=== PATIENT | male | born 1980 | race American Indian/Alaskan Native ===

== ENCOUNTER 2020-09-30 22:13 | Emergency (ER) | payer MEDICAID ==
[~2020-09-30] VITALS: Ht 165.1 cm; Wt 74.8 kg
--- NOTE | 2020-09-30 22:20 | NUR ---
PT BIBS WITH SPLINTER TO SOLE OF LT FOOT. ALERT AND ORIENTED X4. WITH NON LABORED SPONTANEOUS BREATHING. RATES PAIN 5/10.
--- NOTE | 2020-09-30 23:45 | NUR ---
HOT DIE PRESS FEEDER AT BEDSIDE.
[2020-10-01] MEDS ORDERED: SULF-10 PO (01:43)
[2020-10-01] MEDS ORDERED: SULFAMETH/TRIMETH 800/160 MG 1 UDTAB TABLET ONE (01:54)
--- NOTE | 2020-10-01 01:56 | NUR ---
Patient discharged to home in stable condition. Written and verbal after care instructions given. Patient verbalizes understanding of instruction.
[2020-10-01 01:57] VITALS: BP 124/87
[2020-10-01] MEDS ORDERED: SULFAMETH/TRIMETH 800/160 MG 1 UDTAB TABLET PO ONE (02:00)
== END 2020-10-01 01:57 | disposition home or self-care (01) ==
LOC: ER 22:18
DX: S90.852A Superficial foreign body, left foot, initial encounter (principal); W45.8XXA Other foreign body or object entering through skin, initial encounter; Y93.89 Activity, other specified; Y92.89 Other specified places as the place of occurrence of the external cause; Y99.8 Other external cause status
CPT/HCPCS: 73630-TC